=== PATIENT | female | born 1940 | race Caucasian/White ===

== ENCOUNTER 2016-05-08 19:48 | Observation (INO) | payer MEDICARE, OTHER ==
[~2016-05-08] VITALS: Ht 170.2 cm; Wt 60.3 kg
[~2016-05-08 19:48] MED LIST: CRESTOR20 MG PO; EASY TOUCH MC; FERROUS SULFAT325 MG PO; FOLIC ACID1 MG PO; HYDRALAZINE HCL50 MG PO; IMDUR ER TAB 6060 MG PO; LOMOTIL TABLET1 EA PO; METOPROLOL SUCC25 MG PO; NITROSTAT0.4 MG SL; PLAVIX 75 MG TA75 MG PO; PROZAC20 MG PO; TRESIBA SQ; ULTRAM50 MG PO; VALIUM 5 MG TAB5 MG PO
[2016-05-09 01:12] LABS: HEMOGLOBIN 13.2 gm/dl (12.3-15.3); RED BLOOD COUNT 4.34 M/UL (4.00-5.10); WHITE BLOOD COUNT 3.9 K/UL (4.5-11.0)
[2016-05-09] MEDS ORDERED: ASPIRIN EC81 MG PO (09:04)
[2016-05-10 06:43] LABS: HEMOGLOBIN 11.5 gm/dl (12.3-15.3); WHITE BLOOD COUNT 4.7 K/UL (4.5-11.0)
[2016-05-10 06:53] LABS: RED BLOOD COUNT 3.87 M/UL (4.00-5.10)
--- NOTE | 2016-05-10 13:23 | NUR ---
reported to dr. sullivan and dr. sinan palomares MRI RESULT. DR. FLOWERS to inform DR. HERB santos will follow up through the patient .
[2016-05-11] MEDS ORDERED: LIPITOR TAB 2020 MG PO (14:12)
== END 2016-05-11 15:35 | disposition home or self-care (01) ==
LOC: ER1 19:48 → ZEROF 05-09 10:12 → M/S 05-09 15:30
PROVIDERS: Family Medicine; ADMIT Hospitalist
DX: I63.9 Cerebral infarction, unspecified (principal); G91.2 (Idiopathic) normal pressure hydrocephalus; N17.9 Acute kidney failure, unspecified; E11.9 Type 2 diabetes mellitus without complications; D69.6 Thrombocytopenia, unspecified; I25.10 Atherosclerotic heart disease of native coronary artery without angina pectoris; E78.5 Hyperlipidemia, unspecified; I11.0 Hypertensive heart disease with heart failure; I50.30 Unspecified diastolic (congestive) heart failure; I47.1 Supraventricular tachycardia; E87.6 Hypokalemia; D72.819 Decreased white blood cell count, unspecified; K21.9 Gastro-esophageal reflux disease without esophagitis; Z91.81 History of falling; Z95.1 Presence of aortocoronary bypass graft; Z79.82 Long term (current) use of aspirin; Z79.02 Long term (current) use of antithrombotics/antiplatelets; Z79.899 Other long term (current) drug therapy; Z87.19 Personal history of other diseases of the digestive system; Z90.49 Acquired absence of other specified parts of digestive tract; Z88.0 Allergy status to penicillin; Z88.2 Allergy status to sulfonamides; Z88.6 Allergy status to analgesic agent; Z88.5 Allergy status to narcotic agent; Z87.891 Personal history of nicotine dependence; Z82.49 Family history of ischemic heart disease and other diseases of the circulatory system
CPT/HCPCS: ECHO; 36415; 70450; 70553; 71010; 80048; 80053; 80061; 81001; 82550; 82553; 82607; 82962; 83036; 83735; 83874; 84132; 84484; 85025; 85027; 93005; 93306; 93925; 96365; 96366; 96372; 96374; 96375; 99285; A9577; G0378; J0360; J1650; J1815; J3480; J7030

== ENCOUNTER 2016-05-23 09:08 | Emergency (ER) | payer MEDICARE, OTHER ==
[~2016-05-23 09:08] MED LIST changes: +ASPIRIN EC81 MG PO; +LIPITOR TAB 2020 MG PO
[2016-05-23 10:29] LABS: HEMOGLOBIN 10.6 gm/dl (12.3-15.3); RED BLOOD COUNT 3.5 M/UL (4.00-5.10); WHITE BLOOD COUNT 6.5 K/UL (4.5-11.0)
== END 2016-05-23 13:10 | disposition home or self-care (01) ==
LOC: ER1 09:08
PROVIDERS: Emergency Medicine
DX: R53.1 Weakness (principal); E11.9 Type 2 diabetes mellitus without complications; I10 Essential (primary) hypertension; G31.9 Degenerative disease of nervous system, unspecified; I67.82 Cerebral ischemia; I25.810 Atherosclerosis of coronary artery bypass graft(s) without angina pectoris; I50.9 Heart failure, unspecified
CPT/HCPCS: 36415; 70450; 71010; 80053; 82550; 82553; 83605; 83874; 83880; 84484; 85025; 85610; 85730; 93005; 96360; 99285; J1940

== ENCOUNTER 2016-05-25 11:18 | Inpatient (IN) | payer MEDICARE, OTHER ==
[~2016-05-25] VITALS: Ht 167.6 cm; Wt 63.0 kg
[2016-05-25 11:59] LABS: HEMOGLOBIN 11.6 gm/dl (12.3-15.3); WHITE BLOOD COUNT 6.8 K/UL (4.5-11.0)
[2016-05-25 12:00] LABS: RED BLOOD COUNT 3.86 M/UL (4.00-5.10)
[2016-05-27 05:21] LABS: RED BLOOD COUNT 3.34 M/UL (4.00-5.10); WHITE BLOOD COUNT 6.9 K/UL (4.5-11.0)
[2016-05-27] MEDS ORDERED: RANEXA1000 MG PO (09:16)
[2016-05-28 04:28] LABS: HEMOGLOBIN 8.8 gm/dl (12.3-15.3); WHITE BLOOD COUNT 5.2 K/UL (4.5-11.0)
[2016-05-28 04:29] LABS: RED BLOOD COUNT 2.92 M/UL (4.00-5.10)
[2016-05-29 04:32] LABS: HEMOGLOBIN 8.7 gm/dl (12.3-15.3); RED BLOOD COUNT 2.87 M/UL (4.00-5.10); WHITE BLOOD COUNT 4.5 K/UL (4.5-11.0)
[2016-05-30 05:22] LABS: HEMOGLOBIN 9.4 gm/dl (12.3-15.3); RED BLOOD COUNT 3.06 M/UL (4.00-5.10); WHITE BLOOD COUNT 3.3 K/UL (4.5-11.0)
[2016-05-31 07:26] LABS: HEMOGLOBIN 8.8 gm/dl (12.3-15.3); RED BLOOD COUNT 2.9 M/UL (4.00-5.10)
[2016-06-01 03:58] LABS: HEMOGLOBIN 8.9 gm/dl (12.3-15.3); WHITE BLOOD COUNT 4.4 K/UL (4.5-11.0)
[2016-06-05] MEDS ORDERED: HYDRALAZINE HCL50 MG PO (12:03)
[2016-06-06 03:01] LABS: RED BLOOD COUNT 2.91 M/UL (4.00-5.10); WHITE BLOOD COUNT 5.6 K/UL (4.5-11.0)
[2016-06-07] MEDS ORDERED: TRESIBA SQ (14:35)
== END 2016-06-07 16:05 | DRG 637 ==
LOC: ER1 11:18 → ZEROF 13:46 → CCU 13:46 → PROG CARE 13:46 → CCU 19:59 → PROG CARE 05-26 14:37 → CCU 05-31 22:04 → M/S 06-05 22:28
PROVIDERS: Emergency Medicine; Hospitalist; Internal Medicine; Internal Medicine Nephrology; ADMIT Internal Medicine
PROC: 03HC33Z Insertion of Infusion Device into Left Radial Artery, Percutaneous Approach (ICD-10-PCS; principal; 2016-05-31)
DX: E11.649 Type 2 diabetes mellitus with hypoglycemia without coma (principal); G93.41 Metabolic encephalopathy; I50.32 Chronic diastolic (congestive) heart failure; G91.2 (Idiopathic) normal pressure hydrocephalus; N30.00 Acute cystitis without hematuria; E87.2 Acidosis; D61.818 Other pancytopenia; Q25.1 Coarctation of aorta; I13.0 Hypertensive heart and chronic kidney disease with heart failure and stage 1 through stage 4 chronic kidney disease, or unspecified chronic kidney disease; N17.9 Acute kidney failure, unspecified; I16.0 Hypertensive urgency; R68.0 Hypothermia, not associated with low environmental temperature; R00.1 Bradycardia, unspecified; R50.9 Fever, unspecified; R53.81 Other malaise; R53.1 Weakness; I27.2 Other secondary pulmonary hypertension; E11.22 Type 2 diabetes mellitus with diabetic chronic kidney disease; N18.3 Chronic kidney disease, stage 3 (moderate); I25.10 Atherosclerotic heart disease of native coronary artery without angina pectoris; Z95.1 Presence of aortocoronary bypass graft; K21.9 Gastro-esophageal reflux disease without esophagitis; Z90.49 Acquired absence of other specified parts of digestive tract; Z91.81 History of falling; Z87.19 Personal history of other diseases of the digestive system; D69.6 Thrombocytopenia, unspecified; E78.5 Hyperlipidemia, unspecified; E11.65 Type 2 diabetes mellitus with hyperglycemia; Z88.0 Allergy status to penicillin; Z88.2 Allergy status to sulfonamides; Z88.6 Allergy status to analgesic agent; Z88.5 Allergy status to narcotic agent; Z87.891 Personal history of nicotine dependence; Z86.73 Personal history of transient ischemic attack (TIA), and cerebral infarction without residual deficits; Z82.49 Family history of ischemic heart disease and other diseases of the circulatory system; B96.20 Unspecified Escherichia coli [E. coli] as the cause of diseases classified elsewhere; I73.89 Other specified peripheral vascular diseases; Z88.8 Allergy status to other drugs, medicaments and biological substances; Z79.82 Long term (current) use of aspirin; Z79.899 Other long term (current) drug therapy
CPT/HCPCS: ECHO; 36415; 70450; 71010; 80048; 80053; 80307; 81001; 82009; 82436; 82550; 82553; 82570; 82607; 82800; 82962; 83605; 83735; 83874; 83880; 84133; 84156; 84300; 84439; 84443; 84484; 85025; 85027; 85610; 85730; 87040; 87077; 87086; 87186; 93005; 93306; 93308; 93922; 94640; 96360; 96361; 96374; 97110; 97530; 97535; 99285; C8902; J0696; J1335; J1650; J1940; J2405; J7030; J7040; J7050

== ENCOUNTER 2016-06-18 12:40 | Inpatient (IN) | payer MEDICARE, OTHER ==
[~2016-06-18] VITALS: Ht 167.6 cm; Wt 63.5 kg
[~2016-06-18 12:40] MED LIST changes: +RANEXA1000 MG PO
[2016-06-19 05:11] LABS: HEMOGLOBIN 9.1 gm/dl (12.3-15.3); RED BLOOD COUNT 2.91 M/UL (4.00-5.10); WHITE BLOOD COUNT 4.6 K/UL (4.5-11.0)
== END 2016-06-23 21:50 | disposition expired | DRG 291 ==
LOC: MED SURG 4 14:44 → CCU 14:44 → MED SURG 4 06-20 13:51
PROVIDERS: ADMIT Emergency Medicine
PROC: 5A09357 Assistance with Respiratory Ventilation, Less than 24 Consecutive Hours, Continuous Positive Airway Pressure (ICD-10-PCS; principal; 2016-06-18)
DX: I13.0 Hypertensive heart and chronic kidney disease with heart failure and stage 1 through stage 4 chronic kidney disease, or unspecified chronic kidney disease (principal); I50.33 Acute on chronic diastolic (congestive) heart failure; J96.21 Acute and chronic respiratory failure with hypoxia; G93.41 Metabolic encephalopathy; N18.4 Chronic kidney disease, stage 4 (severe); N17.9 Acute kidney failure, unspecified; E44.0 Moderate protein-calorie malnutrition; E87.0 Hyperosmolality and hypernatremia; I47.1 Supraventricular tachycardia; G91.2 (Idiopathic) normal pressure hydrocephalus; E11.22 Type 2 diabetes mellitus with diabetic chronic kidney disease; E11.65 Type 2 diabetes mellitus with hyperglycemia; Z51.5 Encounter for palliative care; Z66 Do not resuscitate; I27.2 Other secondary pulmonary hypertension; I25.10 Atherosclerotic heart disease of native coronary artery without angina pectoris; D63.1 Anemia in chronic kidney disease; D69.6 Thrombocytopenia, unspecified; E78.5 Hyperlipidemia, unspecified; I73.9 Peripheral vascular disease, unspecified; I70.1 Atherosclerosis of renal artery; K21.9 Gastro-esophageal reflux disease without esophagitis; F03.90 Unspecified dementia, unspecified severity, without behavioral disturbance, psychotic disturbance, mood disturbance, and anxiety; Z95.1 Presence of aortocoronary bypass graft; Z87.891 Personal history of nicotine dependence; Z86.73 Personal history of transient ischemic attack (TIA), and cerebral infarction without residual deficits; Z68.22 Body mass index [BMI] 22.0-22.9, adult; Z79.02 Long term (current) use of antithrombotics/antiplatelets; Z79.82 Long term (current) use of aspirin; Z79.899 Other long term (current) drug therapy; Z88.5 Allergy status to narcotic agent; Z88.0 Allergy status to penicillin; Z88.2 Allergy status to sulfonamides; Z90.49 Acquired absence of other specified parts of digestive tract; Z98.890 Other specified postprocedural states; Z82.49 Family history of ischemic heart disease and other diseases of the circulatory system
CPT/HCPCS: 36415; 36600; 71010; 80048; 80053; 81001; 82043; 82550; 82553; 82570; 82728; 82803; 83540; 83550; 83735; 84439; 84443; 84484; 85025; 87040; 94640; 94660; 94664; J0885; J1644; J1940; J2060; J3486